=== PATIENT | male | born 1995 | race Caucasian/White ===

== ENCOUNTER 2017-08-16 17:05 | Inpatient (IN) | payer MEDICAID ==
[~2017-08-16] VITALS: Ht 175.3 cm; Wt 69.6 kg
[2017-08-16 19:50] VITALS: BP 111/65
[2017-08-16] MEDS: ZOLPIDEM TARTRATE 10 MG TABLET PO PRN (20:36)
[2017-08-17 00:20] VITALS: BP 112/87
[2017-08-17] MEDS: LORazepam 2 MG TABLET PO PRN ×3 (06:20→16:14)
[2017-08-17 09:06] LABS: BASOPHILS % (AUTO) 2.1 % (0.0-2.0); EOSINOPHILS % (AUTO) 10.2 % (1.0-6.0); HEMATOCRIT 44.5 % (41-53); HEMOGLOBIN 15.7 g/dL (13.5-17.5); LYMPHOCYTES % (AUTO) 34.8 % (22.0-44.0); MEAN CORPUSCULAR HEMOGLOBIN 32.9 pg (26.0-34.0); MEAN CORPUSCULAR HGB CONC 35.2 G/dL (31.0-37.0); MEAN CORPUSCULAR VOLUME 93 fL (80-100); MONOCYTES # (AUTO) 0.5 K/uL (0.1-1.0); MONOCYTES % (AUTO) 8.2 % (2.0-9.0); NEUTROPHILS # (AUTO) 2.5 K/uL (1.8-7.7); NEUTROPHILS % (AUTO) 44.7 % (40.0-70.0); PLATELET COUNT (AUTO) 267 K/uL (150-450); RED BLOOD CELL COUNT(AUTO) 4.77 MIL/uL (4.50-5.90); RED CELL DISTRIBUTION WIDTH 13.4 % (11.5-14.5)
[2017-08-17 09:57] VITALS: BP 104/60
[2017-08-17 09:58] LABS: HEMOGLOBIN A1C 4.9 % (4.5-6.2)
[2017-08-17 10:06] LABS: ALANINE AMINOTRANSFERASE 210 U/L (12-78); ALBUMIN 3.8 g/dL (3.4-5.0); ALKALINE PHOSPHATASE 101 U/L (46-116); ANION GAP 6 mmol/L (8-16); ASPARTATE AMINOTRANSFERASE 69 U/L (15-37); BILIRUBIN,TOTAL 0.3 mg/dL (0.1-1.0); CARBON DIOXIDE 30 mmol/L (22-29); CHLORIDE 105 mmol/L (98-107); CHOL/HDL RATIO 3.3 (4.2-7.3); CHOLESTEROL 158 mg/dL (131-200); CREATININE 0.63 mg/dL (0.60-1.30); FREE T4 (FREE THYROXINE) 0.91 ng/dL (0.76-1.46); GLOMERULAR FILTR. RATE CALC > 60 mL/min (>60); GLUCOSE,RANDOM 79 mg/dL (70-110); HDL CHOLESTEROL 48 mg/dL (40-60); LDL CHOL (CALC.) 89 mg/dL (0-130); POTASSIUM 4.5 mmol/L (3.5-5.1); SODIUM SERUM 141 mmol/L (136-145); THYROID STIMULATING HORMONE 1.42 uIU/mL (0.36-3.74); TOTAL PROTEIN, SERUM 6.6 g/dL (6.4-8.2); TRIGLYCERIDES 105 mg/dL (15-150); UREA NITROGEN, BLOOD 18 mg/dL (7-18)
[2017-08-17] MEDS: OLANZapine 10 MG TABLET PO SCH ×2 (10:29→20:37)
[2017-08-17] MEDS ORDERED: CloNIDine HCL 0.1 MG TABLET PO PRN (10:30)
[2017-08-17] MEDS ORDERED: BACITRACIN 28.4 GM OINTMENT TP PRN (10:30)
[2017-08-17] MEDS ORDERED: ALBUTEROL SULFATE HFA 90 MCG/PUFF 8 GM INHALER IH PRN (10:30)
[2017-08-17] MEDS ORDERED: LOPERAMIDE HCL 2 MG CAPSULE PO PRN (10:30)
[2017-08-17] MEDS ORDERED: MAGNESIUM HYDROXIDE SUSPENSION 30 ML UDCUP PO PRN (10:30)
[2017-08-17] MEDS ORDERED: IBUPROFEN 600 MG TABLET PO PRN (10:30)
[2017-08-17] MEDS ORDERED: BENZOCAINE/MENTHOL LOZENGE MM PRN (10:30)
[2017-08-17] MEDS ORDERED: PHENYLEPHRINE/SHK LV/MIN OIL/PET 57 GM OINTMENT TP PRN (10:30)
[2017-08-17] MEDS ORDERED: PETROLATUM,WHITE 71 GM JELLY TP PRN (10:30)
[2017-08-17] MEDS ORDERED: ONDANSETRON HCL 4 MG TABLET PO PRN (10:30)
[2017-08-17] MEDS ORDERED: ACETAMINOPHEN 325 MG TABLET PO PRN (10:30)
[2017-08-17] MEDS ORDERED: MAG HYDROX/AL HYDROX/SIMETH ES 30 ML SUSPENSION UDCUP PO PRN (10:30)
[2017-08-17] MEDS: NICOTINE 21 MG/24 HOUR PATCH TD SCH (12:15)
[2017-08-17 16:11] VITALS: BP 114/70
[2017-08-17] MEDS: TERBINAFINE HCL 1% 30 GM CREAM TP SCH ×2 (16:14→16:15)
[2017-08-18 03:18] VITALS: BP 119/81
[2017-08-18] MEDS: LORazepam 2 MG TABLET PO PRN ×3 (03:21→14:33)
[2017-08-18] MEDS: ZOLPIDEM TARTRATE 10 MG TABLET PO PRN ×2 (03:21→20:39)
[2017-08-18] MEDS: HALOPERIDOL 5 MG TABLET PO PRN ×3 (08:00→16:25)
[2017-08-18] MEDS: OLANZapine 10 MG TABLET PO SCH ×2 (08:01→20:29)
[2017-08-18] MEDS: NICOTINE 21 MG/24 HOUR PATCH TD SCH (08:01)
[2017-08-18] MEDS: TERBINAFINE HCL 1% 30 GM CREAM TP SCH ×2 (08:01→16:26)
[2017-08-18 08:13] VITALS: BP 116/86
[2017-08-18 16:27] VITALS: BP 110/66
[2017-08-19 00:42] VITALS: BP 109/78
[2017-08-19 06:55] VITALS: BP 115/69
[2017-08-19] MEDS: LORazepam 2 MG TABLET PO PRN ×2 (06:59→15:33)
[2017-08-19 08:24] VITALS: BP 120/69
[2017-08-19] MEDS: OLANZapine 10 MG TABLET PO SCH ×2 (08:46→20:15)
[2017-08-19] MEDS: TERBINAFINE HCL 1% 30 GM CREAM TP SCH ×2 (08:46→17:10)
[2017-08-19] MEDS: NICOTINE 21 MG/24 HOUR PATCH TD SCH (08:47)
[2017-08-19] MEDS: HALOPERIDOL 5 MG TABLET PO PRN (14:55)
[2017-08-19 16:45] VITALS: BP 114/66
[2017-08-20 06:00] VITALS: BP 106/76
[2017-08-20] MEDS: LORazepam 2 MG TABLET PO PRN ×3 (06:59→16:48)
[2017-08-20 08:35] VITALS: BP 109/71
[2017-08-20] MEDS: TERBINAFINE HCL 1% 30 GM CREAM TP SCH ×2 (08:42→16:21)
[2017-08-20] MEDS: OLANZapine 10 MG TABLET PO SCH ×2 (08:42→20:19)
[2017-08-20] MEDS: NICOTINE 21 MG/24 HOUR PATCH TD SCH (08:42)
[2017-08-20] MEDS: HALOPERIDOL 5 MG TABLET PO PRN (14:12)
[2017-08-20 16:19] VITALS: BP 113/60
[2017-08-20 16:48] VITALS: BP 115/68
[2017-08-21 01:15] VITALS: BP 111/66
[2017-08-21] MEDS: LORazepam 2 MG TABLET PO PRN ×2 (07:13→16:50)
[2017-08-21] MEDS: NICOTINE 21 MG/24 HOUR PATCH TD SCH (08:20)
[2017-08-21] MEDS: OLANZapine 10 MG TABLET PO SCH ×2 (08:20→18:58)
[2017-08-21] MEDS: TERBINAFINE HCL 1% 30 GM CREAM TP SCH ×2 (08:21→17:21)
[2017-08-21 08:39] VITALS: BP 111/79
[2017-08-21] MEDS ORDERED: OLAN10TA3 PO ×2 (08:58→11:04)
[2017-08-21] MEDS ORDERED: TERB30CR (08:58)
[2017-08-21] MEDS ORDERED: TERB30CR TP (11:21)
[2017-08-21] MEDS: HALOPERIDOL 5 MG TABLET PO PRN (15:17)
[2017-08-21 16:25] VITALS: BP 114/64
== END 2017-08-21 22:08 | disposition home or self-care (01) | DRG 750 ==
LOC: B2S 19:25
PROVIDERS: ADMIT Psychiatry & Neurology Psychiatry; ATTEND Psychiatry & Neurology Psychiatry
DX: F20.0 Paranoid schizophrenia (principal); R45.851 Suicidal ideations; Z59.0 Homelessness; F15.10 Other stimulant abuse, uncomplicated; B19.20 Unspecified viral hepatitis C without hepatic coma; B35.3 Tinea pedis; R21 Rash and other nonspecific skin eruption; G47.00 Insomnia, unspecified; K64.9 Unspecified hemorrhoids; F17.200 Nicotine dependence, unspecified, uncomplicated; Z65.3 Problems related to other legal circumstances; Z79.899 Other long term (current) drug therapy; Z91.5 Personal history of self-harm; Z71.51 Drug abuse counseling and surveillance of drug abuser
CPT/HCPCS: 83036; 84439; 84443; 87081

== ENCOUNTER 2018-07-08 05:07 | Emergency (ER) | payer MEDICAID, OTHER ==
[~2018-07-08] VITALS: Ht 180.3 cm; Wt 59.1 kg
[~2018-07-08 05:07] MED LIST: OLAN10TA3 PO; TERB30CR TP
[2018-07-08] MEDS ORDERED: ALPR1TAB2 PO (05:21)
[2018-07-08 05:45] VITALS: BP 135/84
[2018-07-08] MEDS ORDERED: OLANZapine 5 MG TABLET PO ONE (06:00)
[2018-07-08] MEDS ORDERED: LORazepam 1 MG TABLET PO ONE (06:00)
== END 2018-07-08 06:10 | disposition home or self-care (01) ==
LOC: EMS 05:10
DX: F20.9 Schizophrenia, unspecified (principal); F17.210 Nicotine dependence, cigarettes, uncomplicated; Z79.899 Other long term (current) drug therapy; Z76.0 Encounter for issue of repeat prescription

== ENCOUNTER 2018-08-15 11:28 | Inpatient (IN) | payer MEDICAID ==
[~2018-08-15] VITALS: Ht 177.8 cm; Wt 69.9 kg
[~2018-08-15 11:28] MED LIST changes: +ALPR1TAB2 PO; -TERB30CR TP
[2018-08-15 11:52] VITALS: BP 9/53
[2018-08-15] MEDS ORDERED: HALO100A IM (12:10)
[2018-08-15] MEDS ORDERED: BENZ2TAB10 PO (12:10)
[2018-08-15] MEDS ORDERED: TRAZ-252 PO (12:10)
[2018-08-15 13:11] VITALS: BP 108/81
[2018-08-15] MEDS ORDERED: NICOTINE 14 MG/24 HOUR PATCH TD PRN (13:45)
[2018-08-15] MEDS: LORazepam 2 MG TABLET PO PRN (13:51)
[2018-08-15 16:27] VITALS: BP 121/91
[2018-08-16 01:24] VITALS: BP 109/67
[2018-08-16 05:15] VITALS: BP 112/69
[2018-08-16] MEDS: LORazepam 2 MG TABLET PO PRN ×2 (05:15→16:49)
[2018-08-16 08:09] VITALS: BP 109/75
[2018-08-16 09:02] LABS: AMPHET/METH SCREEN,URINE NEGATIVE (NEGATIVE); BARBITURATE SCREEN, URINE NEGATIVE (NEGATIVE); BENZODIAZEPINES SCREEN,URINE NEGATIVE (NEGATIVE); CANNABINOID SCREEN,URINE NEGATIVE (NEGATIVE); COCAINE SCREEN,URINE NEGATIVE (NEGATIVE); METHADONE SCREEN, URINE NEGATIVE (NEGATIVE); OPIATE SCREEN,URINE NEGATIVE (NEGATIVE)
[2018-08-16 09:07] LABS: PHENCYCLIDINE SCREEN,URINE NEGATIVE (NEGATIVE)
[2018-08-16] MEDS ORDERED: HALOPERIDOL LACTATE 5 MG/ML VIAL IM ONE (09:45)
[2018-08-16] MEDS ORDERED: DiphenhydrAMINE HCL 50 MG/ML VIAL IM ONE (09:45)
[2018-08-16] MEDS ORDERED: LORazepam 2 MG/ML VIAL IM ONE (09:45)
[2018-08-16] MEDS ORDERED: LORazepam 2 MG/ML VIAL ONE (09:59)
[2018-08-16] MEDS ORDERED: HALOPERIDOL LACTATE 5 MG/ML VIAL ONE (10:00)
[2018-08-16] MEDS ORDERED: DiphenhydrAMINE HCL 50 MG/ML VIAL ONE (10:00)
[2018-08-16 10:14] LABS: APPEARANCE,URINE CLEAR (CLEAR); BILIRUBIN,URINE NEGATIVE (NEGATIVE); GLUCOSE, URINE (UA) NEGATIVE (NEGATIVE); KETONES,URINE NEGATIVE (NEGATIVE); LEUKOCYTE ESTERASE ,URINE NEGATIVE (NEGATIVE); NITRATE,URINE NEGATIVE (NEGATIVE); OCCULT BLOOD,URINE NEGATIVE (NEGATIVE); PROTEIN,URINE NEGATIVE (NEGATIVE); UROBILINOGEN,URINE 0.2 mg/dL (<=1.0)
[2018-08-16] MEDS: OXcarbazepine 300 MG TABLET PO SCH (16:48)
[2018-08-16] MEDS: HALOPERIDOL 5 MG TABLET PO PRN (16:49)
[2018-08-16] MEDS: ZOLPIDEM TARTRATE 10 MG TABLET PO PRN (20:48)
[2018-08-16] MEDS: TraZODone HCL 50 MG TABLET PO SCH (20:48)
[2018-08-17] MEDS: HALOPERIDOL 5 MG TABLET PO PRN ×2 (08:09→13:57)
[2018-08-17] MEDS: LORazepam 2 MG TABLET PO PRN ×3 (08:09→20:59)
[2018-08-17] MEDS: OXcarbazepine 300 MG TABLET PO SCH ×2 (08:09→17:01)
[2018-08-17 08:16] VITALS: BP 110/61
[2018-08-17 16:18] VITALS: BP 90/64
[2018-08-17] MEDS: BENZTROPINE MESYLATE 1 MG TABLET PO SCH (17:01)
[2018-08-17] MEDS: ZOLPIDEM TARTRATE 10 MG TABLET PO PRN (20:59)
[2018-08-17] MEDS: TraZODone HCL 50 MG TABLET PO SCH (20:59)
[2018-08-18] MEDS: LORazepam 2 MG TABLET PO PRN ×3 (06:21→16:53)
[2018-08-18 08:08] VITALS: BP 105/65
[2018-08-18] MEDS: BENZTROPINE MESYLATE 1 MG TABLET PO SCH ×2 (08:34→16:53)
[2018-08-18] MEDS: OXcarbazepine 300 MG TABLET PO SCH ×2 (08:34→16:53)
[2018-08-18 16:48] VITALS: BP 100/65
[2018-08-18] MEDS: HALOPERIDOL 5 MG TABLET PO PRN (16:53)
[2018-08-18] MEDS: ZOLPIDEM TARTRATE 10 MG TABLET PO PRN (20:06)
[2018-08-18] MEDS: TraZODone HCL 50 MG TABLET PO SCH (20:06)
[2018-08-19] MEDS: LORazepam 2 MG TABLET PO PRN ×2 (05:57→10:19)
[2018-08-19 06:07] VITALS: BP 115/75
[2018-08-19 08:50] VITALS: BP 112/65
[2018-08-19] MEDS: BENZTROPINE MESYLATE 1 MG TABLET PO SCH (08:50)
[2018-08-19] MEDS: OXcarbazepine 300 MG TABLET PO SCH (08:50)
[2018-08-19] MEDS ORDERED: OXCA300T29 PO (14:23)
== END 2018-08-19 15:30 | disposition home or self-care (01) | DRG 750 ==
LOC: B2S 12:26 → B3A 08-16 15:36
PROVIDERS: ADMIT Psychiatry & Neurology Psychiatry; ATTEND Psychiatry & Neurology Psychiatry
DX: F25.0 Schizoaffective disorder, bipolar type (principal); G25.9 Extrapyramidal and movement disorder, unspecified; R45.851 Suicidal ideations; B19.20 Unspecified viral hepatitis C without hepatic coma; F15.90 Other stimulant use, unspecified, uncomplicated; F41.9 Anxiety disorder, unspecified; Z79.899 Other long term (current) drug therapy; Z91.5 Personal history of self-harm
CPT/HCPCS: 80307; 82105; J1200; J1630; J2060

== ENCOUNTER 2021-08-26 21:30 | Emergency (ER) | payer MEDICAID, OTHER ==
[~2021-08-26 21:30] MED LIST changes: -ALPR1TAB2 PO; +BENZ2TAB76 PO; -OLAN10TA3 PO; +OXCA300T57 PO; +TRAZ-252 PO
== END 2021-08-26 22:07 | disposition left against medical advice (07) ==
LOC: EMS 21:32
DX: Z53.21 Procedure and treatment not carried out due to patient leaving prior to being seen by health care provider (principal)

== ENCOUNTER 2021-10-18 13:19 | Emergency (ER) | payer OTHER ==
[~2021-10-18] VITALS: Ht 180.3 cm; Wt 68.2 kg
[2021-10-18] MEDS ORDERED: PERTUSS(ACELL),DIPH,TET VAC/PF 0.5 ML SYRINGE IM. ONE (15:15)
[2021-10-18 15:38] VITALS: BP 124/60
== END 2021-10-18 16:07 | disposition home or self-care (01) ==
LOC: EMS 13:19
DX: L08.89 Other specified local infections of the skin and subcutaneous tissue (principal); F41.9 Anxiety disorder, unspecified; F20.9 Schizophrenia, unspecified; F10.20 Alcohol dependence, uncomplicated; F12.90 Cannabis use, unspecified, uncomplicated; F15.10 Other stimulant abuse, uncomplicated; F17.210 Nicotine dependence, cigarettes, uncomplicated
CPT/HCPCS: 90471; 90715; 99283